=== PATIENT | male | born 1975 | race Caucasian/White ===

== ENCOUNTER 2023-10-08 19:00 | Emergency (ER) | payer SELFPAY ==
[2023-10-08 19:10] VITALS: BP 151/89
[2023-10-08 19:36] LABS: % Basophils 0.1 % (0-2); % Eosinophils 0.1 % (0-6); % Immature Granulocytes 0.2 % (0-0.5); % Lymphocytes 3.8 % (20.5-51.1); % Monocytes 0.6 % (1.7-9.3); % Neutrophils 95.2 % (42.2-75.2); Absolute Lymphocytes 0.5 10^3/uL (1.2-3.4); Absolute Monocytes 0.1 10^3/uL (0.1-0.6); Absolute Neutrophils 11.5 10^3/uL (1.4-6.5); Hematocrit 45.5 % (39.0-52.0); Mean Corpuscular Hgb 27.8 pg (27.0-31.0); Mean Corpuscular Volume 84.3 fL (80.0-94.0); Mean Platelet Volume 10.2 fL (7.4-10.4); Nucleated Red Blood Cells % 0 % (-); Platelet Count 227 10^3/uL (130-400); Red Cell Dist. Width 12.7 % (11.5-14.5); White Blood Cell Count 12.1 10^3/uL (4.8-10.8)
[2023-10-08 19:46] LABS: Erythrocyte Sed Rate 8 mm/hour (0-20)
[2023-10-08 19:54] LABS: Lactic Acid 1.1 mmol/L (0.7-2.0)
[2023-10-08 20:14] LABS: ALT (SGPT) 22 U/L (0-50); AST (SGOT) 30 U/L (17-59); Albumin 4.9 g/dl (3.5-5.0); Alkaline Phosphatase 71 U/L (38-126); Blood Urea Nitrogen 21 mg/dl (9-20); Calcium 9.7 mg/dl (8.4-10.2); Carbon Dioxide 23 mmol/L (22-30); Chloride 105 mmol/L (98-107); Glucose 126 mg/dl (70-99); Potassium 4.3 mmol/L (3.5-5.1); Sodium 138 mmol/L (135-145); Total Bilirubin 0.9 mg/dl (0.2-1.3); Total Protein 8.1 g/dl (6.3-8.2); eGFR > 60.00
--- NOTE | 2023-10-08 20:21 | ED.GENMED ---
History of Present Illness
General
Chief Complaint: Skin Problem
Source: patient
Time Seen by Provider: 10/08/23 20:11
History of Present Illness
History of Present Illness:
47-year-old male presenting to the emergency department for evaluation after he was stung by 2 bees yesterday afternoon around 5:30 PM stating he was stung on the hand and back of his left upper extremity. Patient started noticing increased redness
and swelling to the extremity today so went to urgent care who gave him a steroid tablet as well as topical steroid. Patient also decided to take 25 mg of Benadryl prior to arrival. He denies any fevers, chills, rigors. Has been stung by a
bee/wasp before without any anaphylactic reaction. Denies any difficulty breathing. No other concerns at this time.
Past History
Past History
ED Past Medical History: Other (Kidney stones)
ED Past Surgical History: Other ([place] teeth)
Social History
Tobacco: Non-smoker
Alcohol: None
Drug: None
Personal: Single
Living: alone
Employment: Employed
Review of Systems
Review of Systems
All Other Systems: ROS reviewed and negative except as documented in HPI and ROS
Phy Exam
Physical Exam
Physical Exam:
GENERAL: Alert , in no apparent distress
EYE: conjunctiva clear
Head: Normocephalic atraumatic
NECK: Supple,
ENT: mmm.
LUNGS: no acute respiratory distress
NEUROLOGICAL: Alert and oriented
SKIN: Warm and dry, skin intact. Patchy areas of erythema throughout the left hand, volar and dorsal forearm and distal humerus, blanching, nontender, well-demarcated borders
MUSCULOSKELETAL: well perfused.
PSYCH: Normal and appropriate interaction.
Scores
Heart Failure Risk
Heart Failure Risk Score: Not Applicable
Heart Score for Chest Pain Patients
STEMI patient?: Not applicable
Withdrawal Assessment of Alcohol
Withdrawal Assessment Completed?: Not applicable
Course
Orders/Labs/Results
Orders:
Orders
10/08/23 19:23
Complete Blood Count/With Diff Urgent
Comprehensive Metabolic Panel Urgent
Erythrocyte Sed Rate Urgent
Lactic Acid Urgent
Blood Culture Urgent
WALTER Source: Blood/Venous
Specimen Description:
Abnormal Lab Results
10/08/23
19:23
WBC 12.1 H 10^3/uL
(4.8-10.8)
Absolute Neuts (auto) 11.5 H 10^3/uL
(1.4-6.5)
Absolute Lymphs (auto) 0.5 L 10^3/uL
(1.2-3.4)
Neutrophils % 95.2 H %
(42.2-75.2)
Lymphocytes % 3.8 L %
(20.5-51.1)
Monocytes % 0.6 L %
(1.7-9.3)
BUN 21 H mg/dl
(9-20)
Glucose 126 H mg/dl
(70-99)
10/08/23 19:23
10/08/23 19:23
Vital Signs
Initial and Last Documented VS:
Initial Vital Signs
Temp Pulse Resp BP Pulse Ox
98.3 F 101 20 151/89 98
10/08/23 19:10 10/08/23 19:10 10/08/23 19:10 10/08/23 19:10 10/08/23 19:10
Last Documented Vital Signs
Temp Pulse Resp BP Pulse Ox
98.3 F 101 20 151/89 98
10/08/23 19:10 10/08/23 19:10 10/08/23 19:10 10/08/23 19:10 10/08/23 19:10
MDM/Problems Addressed
Differential Diagnosis Includes:
Inflammatory reaction, cellulitis, hives
MDM/Problems Addressed:
47-year-old male present emergency department for evaluation approximately 24 hours following 2 separate bee stings to his left upper extremity. Went to urgent care and was given p.o. and topical steroids. Took 1 dose of Benadryl prior to arrival
to the ER. I did consider cellulitis as a potential diagnosis however patient symptoms seem to be most suggestive of an inflammatory reaction. Advised he continue with Benadryl every 4-6 hours, NSAIDs for pain and swelling as well as ice and
elevation of his extremity. I did provide patient with a Keflex however advised him that I did not feel his symptoms were related to an infection and that I would not take the antibiotic unless he is not noticing any improvement throughout the
remainder of the week. He is aware of return precautions to the emergency department but otherwise stable for discharge home.
*Pulse Oximetry
Patient hypoxic: no
*Critical Care Note
Total Time (30-74mins, 75-104mins- exclusive of procedures): Not Applicable
Patient Management
Escalation/DeEscalation of care consider admission/obs:
Labs have been initiated in triage. There is a leukocytosis which is a suspect is related to patient being given an oral steroid while at the urgent care and not related to infectious etiology
ED Attending Note
-
Portions of this chart may have been created with voice recognition software.� Occasional wrong word or��sound alike� substitutions may have occurred due to the inherent limitations of voice recognition software.
Discharge Plan
Departure
Patient Disposition: Home (Routine Discharge)
Date of Disposition: 10/08/23
Time of Disposition: 20:22
Patient with high blood pressure during this ER visit?: Yes
Discharge Problem:
Bee sting
Instructions: Insect Bites and Stings ED
Prescriptions:
New
cephalexin 500 mg tablet
500 mg PO TID 7 Days Qty: 21 0RF
No Action
cholecalciferol (vitamin D3) [Vitamin D3] 25 mcg (1,000 unit) Capsule
25 mcg PO DAILY
potassium citrate 15 mEq Tablet Extended Release
15 meq PO DAILY
acetaminophen [acetaminophen] 325 mg tablet
650 mg PO Q6HPRN PRN (Reason: mild pain) Qty: 14 0RF
tramadol 50 mg tablet
25 mg PO Q6HPRN PRN (Reason: severe pain/breakthrough pain) Qty: 12 0RF
ibuprofen 600 mg tablet
600 mg PO Q6H PRN (Reason: pain) Qty: 14 0RF
Interventions
Interventions:
*Risk Screen - Suicide Last Done: 10/08/23 19:10
*General Assessment Last Done: 10/08/23 19:10
*Neglect/Abuse Screening Last Done: 10/08/23 19:10
ED- Fall Risk Assessment Last Done: 10/08/23 20:31
*ED COVID-19 Vaccine History Last Done: 10/08/23 20:33
*Nursing Disposition Last Done: 10/08/23 20:33
ED-Skin Assessment Last Done: 10/08/23 20:31
Discharge Date and Time
Print Language: [id number]
== END 2023-10-08 20:23 | disposition home or self-care (01) ==
LOC: EMR 19:00
PROVIDERS: EMERGENCY PHYSICIAN Emergency Medicine
DX: T63.441A Toxic effect of venom of bees, accidental (unintentional), initial encounter (principal); L53.9 Erythematous condition, unspecified; M79.89 Other specified soft tissue disorders; R03.0 Elevated blood-pressure reading, without diagnosis of hypertension; Z87.442 Personal history of urinary calculi
CPT/HCPCS: 99283; 80053; 83605; 85025; 85652; 87040

== ENCOUNTER → 2024-01-08 14:22 | Outpatient (REF) | payer OTHER, SELFPAY | LOC: RAD 14:22 | PROVIDERS: ATTENDING PHYSICIAN Surgery; FAMILY PHYSICIAN Family Medicine | DX: N20.0 Calculus of kidney (principal) | CPT/HCPCS: 76775 ==

== ENCOUNTER → 2025-01-13 13:32 | Outpatient (REF) | payer OTHER, SELFPAY | LOC: RAD 13:32 | PROVIDERS: ATTENDING PHYSICIAN Surgery; FAMILY PHYSICIAN Family Medicine | DX: N20.0 Calculus of kidney (principal) | CPT/HCPCS: 76775 ==